=== PATIENT | female | born 2000 | race Caucasian/White ===

== ENCOUNTER 2023-01-14 12:21 | Emergency (ER) | payer BC ==
[~2023-01-14 12:21] MED LIST: Iopamidol-370 76% 500 ML MDV (1 ML CHARGE) ONE
[2023-01-14 14:52] LABS: Bacteria/HPF None Seen HPF (None Seen); Bilirubin Negative (Negative); Blood, Urine Negative (Negative); CAUTI Indications for Culture Dysuria,urgency,freq; Clarity Clear (Clear); Glucose, Urine (Dipstick) Greater than 1000 mg/dL (Negative); Ketone, Urine Negative (Negative); Leukocyte Negative Leu/uL (Negative); Nitrite Negative (Negative); Pregnancy Test - Urine (BHCG) Negative (Negative); Pregu Control Background? CLEAR/WHITE (CLR/WHITE); Pregu Control Bar Appear? YES (CONTROL BAR); Protein, Urine (Dipstick) Negative (Neg-Trace); RBC/HPF 0-3 HPF (0-3); Specific Gravity 1.026 (1.002-1.036); Specific Gravity, Urine 1.026 (1.002-1.036); Squamous Epithelial 0-3 HPF (0-3); Urobilinogen Normal mg/dL (Less than 2); WBC/HPF 0-3 HPF (0-3)
[2023-01-14 14:53] LABS: Urine Culture Reflex No No
[2023-01-14] MEDS ORDERED: Ketorolac Tromethamine 30 MG/ML VIAL ONE (15:23)
[2023-01-14 15:26] LABS: #Basophils 0.1 thou/uL (0.0-0.2); #Monocytes 1.5 thou/uL (0.11-0.59); #Neutrophils 11.4 thou/uL (1.40-6.50); %Basophils 0.4 % (0.0-1.0); %Eosinophils 0.3 % (0.0-10.0); %Lymphocytes 16.8 % (21.0-51.0); %Monocytes 9.7 % (0.0-10.0); %Neutrophils 72.1 % (42.0-75.0); Hematocrit 38.4 % (36.0-47.0); Mean Corpuscular HGB CONC 33.9 g/dL (32.0-36.0); Mean Corpuscular Hemoglobin 27.9 pg (27.0-31.0); Mean Corpuscular Volume 82.4 fl (78.0-98.0); Mean Platelet Volume 10.2 fL (7.4-10.4); Platelet Count 335 10x3/uL (130-400); RBC Distribution Width 13.2 % (11.5-14.5); Red Blood Cell (RBC) Count 4.66 mill/uL (4.20-5.40); White Blood Cell (WBC) Count 15.8 10x3/uL (4.8-10.8)
[2023-01-14 18:26] LABS: Albumin 4.1 g/dL (3.5-5.0)
[2023-01-14 18:27] LABS: Chloride 99 mmol/L (98-107); Sodium 130 mmol/L (136-145)
[2023-01-14 18:28] LABS: Calcium 9.7 mg/dL (7.8-10.44); Glucose 252 mg/dL (70-105)
[2023-01-14 18:29] LABS: Globulin 3.8 g/dL (2.4-3.5); Protein, Total 7.9 g/dL (6.0-8.3)
[2023-01-14 18:30] LABS: Anion Gap 13 mmol/L (10-20); Bilirubin, Total 0.4 mg/dL (0.2-1.2); Carbon Dioxide 23 mmol/L (22-29)
[2023-01-14 18:31] LABS: Alkaline Phosphatase 57 U/L (40-110)
[2023-01-14 18:32] LABS: Calc. Creatinine Clearance 0 mL/min (70-130); Estimated GFR 84
[2023-01-14 18:33] LABS: AST (SGOT) 29 U/L (5-34); BUN (Urea Nitrogen) 12 mg/dL (7.0-18.7)
[2023-01-14 18:34] LABS: ALT (SGPT) 39 U/L (8-55)
== END 2023-01-14 21:25 | disposition home or self-care (01) ==
LOC: ERS 12:21
DX: N83.202 Unspecified ovarian cyst, left side (principal); M54.9 Dorsalgia, unspecified; E10.9 Type 1 diabetes mellitus without complications; F17.290 Nicotine dependence, other tobacco product, uncomplicated; Z79.84 Long term (current) use of oral hypoglycemic drugs; Z79.4 Long term (current) use of insulin
CPT/HCPCS: 36415; 74177; 76856; 80053; 81001; 81025; 83605; 85025; 96374; J1885; Q9967

== ENCOUNTER 2024-02-20 16:44 | Emergency (ER) | payer BC ==
[2024-02-20 17:45] LABS: #Basophils 0.05 10x3/uL (0.0-0.2); %Basophils 0.4 % (0.0-1.0); %Eosinophils 1.5 % (0.0-10.0); %Lymphocytes 20.8 % (21.0-51.0); %Monocytes 5.2 % (0.0-10.0); %Neutrophils 71.5 % (42.0-75.0); Hematocrit 42.2 % (36.0-47.0); Hemoglobin 14.4 g/dL (12.0-16.0); Mean Corpuscular HGB CONC 34.1 g/dL (32.0-36.0); Mean Corpuscular Hemoglobin 28.9 pg (27.0-31.0); Mean Corpuscular Volume 84.6 fL (78.0-98.0); Mean Platelet Volume 9.9 fL (7.4-10.4); Platelet Count 319 10x3/uL (130-400); RBC Distribution Width 12.5 % (11.5-14.5); Red Blood Cell (RBC) Count 4.99 mill/uL (4.20-5.40)
[2024-02-20 17:55] LABS: Actual Bicarbonate (HCO3v) 23.8 mEq/L (22-28); Analyzer IN Cardio ER; Base Excess 0.2 mEq/L (-2.0 to +3.0); Calcium, Ionized (venous) 1.12 mmol/L (1.16-1.32); Chloride (VBG) 92 mmol/L (98-106); Hematocrit-VBG 45 % (36.0-47.0); Hemoglobin (Hb) 15.2 g/dL (11.7-15.5); Potassium (VBG) 4.66 mmol/L (3.70-5.30); Sodium 132 mmol/L (133-146)
[2024-02-20] MEDS ORDERED: Droperidol 5 MG/2 ML VIAL ONE (18:02)
[2024-02-20] MEDS ORDERED: Morphine 4 MG/ML VIAL ONE ×2 (18:02→22:53)
[2024-02-20] MEDS ORDERED: Proparacaine 0.5% Opth 15 ML BOT ONE (18:03)
[2024-02-20 18:08] LABS: Troponin I Less than 0.010 ng/mL (< 0.028)
[2024-02-20 18:18] LABS: ALT (SGPT) 73 U/L (8-55); AST (SGOT) 53 U/L (5-34); Albumin 4.2 g/dL (3.5-5.0); Alkaline Phosphatase 50 U/L (40-110); Anion Gap 19 mmol/L (10-20); BUN (Urea Nitrogen) 15 mg/dL (7.0-18.7); Bilirubin, Total 0.6 mg/dL (0.2-1.2); Calc. Creatinine Clearance 0 mL/min (70-130); Calcium 9.9 mg/dL (7.8-10.44); Carbon Dioxide 21 mmol/L (22-29); Chloride 93 mmol/L (98-107); Estimated GFR 74; Globulin 3.5 g/dL (2.4-3.5); Glucose 527 mg/dL (70-105); Potassium 4.3 mmol/L (3.5-5.1); Protein, Total 7.7 g/dL (6.0-8.3); Sodium 129 mmol/L (136-145)
== END 2024-02-20 23:26 | disposition short-term general hospital (02) ==
LOC: ERS 16:44
DX: E10.39 Type 1 diabetes mellitus with other diabetic ophthalmic complication (principal); H42 Glaucoma in diseases classified elsewhere; E10.65 Type 1 diabetes mellitus with hyperglycemia; H40.052 Ocular hypertension, left eye
CPT/HCPCS: 36415; 36416; 80053; 82010; 82805; 83735; 84484; 85025; 96374; 96375; J1790; J2272

== ENCOUNTER 2024-05-14 14:26 | Emergency (ER) | payer BC | END 2024-05-14 15:47 | disposition home or self-care (01) | LOC: ERS 14:26 | DX: S90.811A Abrasion, right foot, initial encounter (principal); E10.9 Type 1 diabetes mellitus without complications; X50.1XXA Overexertion from prolonged static or awkward postures, initial encounter; Y92.481 Parking lot as the place of occurrence of the external cause | CPT/HCPCS: 99283 ==

== ENCOUNTER 2025-01-01 20:03 | Emergency (ER) | payer BC ==
[2025-01-01] MEDS ORDERED: Rabies Vaccine Human 2.5 UNITS VIAL ONE (21:15)
[2025-01-01] MEDS ORDERED: Rabies Immune Globulin/PF 300 UNITS/ML VIAL ONE (21:16)
[2025-01-01] MEDS ORDERED: Boostrix 0.5 ML (Tdap) VIAL (>/=7 yrs of age) ONE (21:30)
== END 2025-01-01 22:48 | disposition home or self-care (01) ==
LOC: ERS 20:03
DX: S61.451A Open bite of right hand, initial encounter (principal); E10.9 Type 1 diabetes mellitus without complications; F17.290 Nicotine dependence, other tobacco product, uncomplicated; W55.01XA Bitten by cat, initial encounter
CPT/HCPCS: 90375; 90471; 90472; 90675; 90715; 96372

== ENCOUNTER → 2025-01-04 | Day surgery (SDC) | payer BC ==
[~2025-01-04] MED LIST changes: -Iopamidol-370 76% 500 ML MDV (1 ML CHARGE) ONE; +Rabies Vaccine Human 2.5 UNITS VIAL ONE
== END ==
LOC: ER/OP 21:14
PROVIDERS: ATTEND Emergency Medicine
DX: Z29.14 Encounter for prophylactic rabies immune globulin (principal)
CPT/HCPCS: 90675

== ENCOUNTER 2025-01-08 19:07 | Emergency (ER) | payer BC ==
[2025-01-08] MEDS ORDERED: Rabies Vaccine Human 2.5 UNITS VIAL ONE (19:15)
== END 2025-01-08 22:00 | disposition left against medical advice (07) ==
LOC: ERS 19:07
DX: Z23 Encounter for immunization (principal); E10.9 Type 1 diabetes mellitus without complications; E78.5 Hyperlipidemia, unspecified; F17.290 Nicotine dependence, other tobacco product, uncomplicated
CPT/HCPCS: 90471; 90675

== ENCOUNTER 2025-01-10 17:33 | Emergency (ER) | payer BC ==
[2025-01-10] MEDS ORDERED: Dexamethasone 10 MG/ML VIAL ONE (18:43)
[2025-01-10] MEDS ORDERED: diphenhydrAMINE 50 MG/ML VIAL ONE (18:43)
[2025-01-10 18:44] LABS: #Basophils 0.04 10x3/uL (0.0-0.2); #Eosinophils 0.24 10x3/uL (0.0-0.7); #Monocytes 0.84 10x3/uL (0.11-0.59); #Neutrophils 6.83 10x3/uL (1.40-6.50); %Basophils 0.4 % (0.0-1.0); %Eosinophils 2.4 % (0.0-10.0); %Lymphocytes 21.2 % (21.0-51.0); %Monocytes 8.2 % (0.0-10.0); %Neutrophils 67.0 % (42.0-75.0); Hematocrit 42.0 % (36.0-47.0); Hemoglobin 13.3 g/dL (12.0-16.0); Mean Corpuscular Hemoglobin 27.6 pg (27.0-31.0); Mean Corpuscular Volume 87.1 fL (78.0-98.0); Platelet Count 301 10x3/uL (130-400); Red Blood Cell (RBC) Count 4.82 mill/uL (4.20-5.40); White Blood Cell (WBC) Count 10.19 10x3/uL (4.8-10.8)
[2025-01-10 19:18] LABS: ALT (SGPT) 108 U/L (Less than 34); AST (SGOT) 72 U/L (11-34); Albumin 3.5 g/dL (3.1-4.5); Alkaline Phosphatase 62 U/L (40-110); Anion Gap 18 mmol/L (10-20); BUN (Urea Nitrogen) 11 mg/dL (7.0-18.7); Bilirubin, Total 0.3 mg/dL (0.3-1.2); CK (CPK) 62 U/L (29-168); Calc. Creatinine Clearance 0 mL/min (70-130); Calcium 9.4 mg/dL (7.8-10.44); Carbon Dioxide 19 mmol/L (22-29); Chloride 97 mmol/L (98-107); Globulin 3.2 g/dL (2.4-3.5); Glucose 530 mg/dL (70-105); Potassium 4.0 mmol/L (3.5-5.1); Sodium 130 mmol/L (136-145)
[2025-01-10 19:29] LABS: Pregnancy Test - Urine (BHCG) Negative (Negative); Pregu Control Background? CLEAR/WHITE (CLR/WHITE); Pregu Control Bar Appear? YES (CONTROL BAR)
[2025-01-10 19:34] LABS: Bacteria/HPF None Seen HPF (None Seen); CAUTI Indications for Culture Dysuria,urgency,freq; Glucose, Urine (Dipstick) Greater than 1000 mg/dL (Negative); Leukocyte Negative Leu/uL (Negative); Protein, Urine (Dipstick) Negative (Neg-Trace); Specific Gravity, Urine 1.019 (1.002-1.036); WBC/HPF 0-3 HPF (0-3)
[2025-01-10 19:36] LABS: Urine Culture Reflex No No
== END 2025-01-10 21:13 | disposition home or self-care (01) ==
LOC: ERS 17:33
DX: E10.65 Type 1 diabetes mellitus with hyperglycemia (principal); R42 Dizziness and giddiness; F17.290 Nicotine dependence, other tobacco product, uncomplicated
CPT/HCPCS: 36415; 36416; 71045; 80053; 81001; 81025; 82010; 82140; 82550; 84443; 85025; 93005; 96374; 96375; J1100; J1200; J1815

== ENCOUNTER 2025-01-25 15:20 | Emergency (ER) | payer BC ==
[2025-01-25] MEDS ORDERED: Iopamidol-370 76% 500 ML MDV (1 ML CHARGE) ONE (15:55)
[2025-01-25 16:17] LABS: CAUTI Indications for Culture Dysuria,urgency,freq; Glucose, Urine (Dipstick) Greater than 1000 mg/dL (Negative); Leukocyte 75 Leu/uL (Negative); Protein, Urine (Dipstick) 20 mg/dL (Neg-Trace); RBC/HPF 0-3 HPF (0-3); Specific Gravity, Urine 1.029 (1.002-1.036)
[2025-01-25 16:21] LABS: #Basophils 0.07 10x3/uL (0.0-0.2); #Eosinophils 0.23 10x3/uL (0.0-0.7); #Monocytes 0.81 10x3/uL (0.11-0.59); #Neutrophils 8.77 10x3/uL (1.40-6.50); %Basophils 0.6 % (0.0-1.0); %Eosinophils 1.8 % (0.0-10.0); %Lymphocytes 20.6 % (21.0-51.0); %Monocytes 6.4 % (0.0-10.0); %Neutrophils 69.9 % (42.0-75.0); Hematocrit 38.3 % (36.0-47.0); Hemoglobin 12.5 g/dL (12.0-16.0); Mean Corpuscular Hemoglobin 27.9 pg (27.0-31.0); Mean Corpuscular Volume 85.5 fL (78.0-98.0); Platelet Count 317 10x3/uL (130-400); Red Blood Cell (RBC) Count 4.48 mill/uL (4.20-5.40); White Blood Cell (WBC) Count 12.56 10x3/uL (4.8-10.8)
[2025-01-25 16:26] LABS: Bacteria/HPF 3+ HPF (None Seen); WBC/HPF 21-50 HPF (0-3)
[2025-01-25 16:28] LABS: Urine Culture Reflex Yes Yes
[2025-01-25 16:32] LABS: BHCG - Serum Negative (NEGATIVE); Pregs Control Background? CLEAR/WHITE (CLR/WHITE); Pregs Control Bar Appear? YES (CONTROL BAR)
[2025-01-25 16:41] LABS: ALT (SGPT) 107 U/L (Less than 34); AST (SGOT) 87 U/L (11-34); Albumin 3.5 g/dL (3.1-4.5); Alkaline Phosphatase 62 U/L (40-110); Anion Gap 17 mmol/L (10-20); BUN (Urea Nitrogen) 16 mg/dL (7.0-18.7); Bilirubin, Total 0.4 mg/dL (0.3-1.2); Calc. Creatinine Clearance 0 mL/min (70-130); Calcium 9.5 mg/dL (7.8-10.44); Carbon Dioxide 21 mmol/L (22-29); Chloride 97 mmol/L (98-107); Globulin 3.3 g/dL (2.4-3.5); Glucose 275 mg/dL (70-105); Potassium 3.8 mmol/L (3.5-5.1); Sodium 131 mmol/L (136-145)
== END 2025-01-25 19:16 | disposition home or self-care (01) ==
LOC: ERS 15:20
DX: N39.0 Urinary tract infection, site not specified (principal); N83.201 Unspecified ovarian cyst, right side; R16.0 Hepatomegaly, not elsewhere classified; E78.5 Hyperlipidemia, unspecified; E10.319 Type 1 diabetes mellitus with unspecified diabetic retinopathy without macular edema; F17.210 Nicotine dependence, cigarettes, uncomplicated; Z79.84 Long term (current) use of oral hypoglycemic drugs
CPT/HCPCS: 74177; 76856; 80053; 81001; 84703; 85025; 87077; 87086; 87186; Q9967

== ENCOUNTER 2025-02-03 04:56 | Emergency (ER) | payer BC ==
[2025-02-03] MEDS ORDERED: Ondansetron PF 4 MG/2 ML Vial ONE (05:30)
[2025-02-03 07:44] LABS: #Basophils 0.05 10x3/uL (0.0-0.2); #Eosinophils 0.24 10x3/uL (0.0-0.7); #Monocytes 0.96 10x3/uL (0.11-0.59); #Neutrophils 8.81 10x3/uL (1.40-6.50); %Basophils 0.4 % (0.0-1.0); %Eosinophils 1.7 % (0.0-10.0); %Lymphocytes 27.1 % (21.0-51.0); %Monocytes 6.9 % (0.0-10.0); %Neutrophils 63.1 % (42.0-75.0); Hematocrit 39.7 % (36.0-47.0); Hemoglobin 13.2 g/dL (12.0-16.0); Mean Corpuscular Hemoglobin 27.7 pg (27.0-31.0); Mean Corpuscular Volume 83.4 fL (78.0-98.0); Platelet Count 348 10x3/uL (130-400); Red Blood Cell (RBC) Count 4.76 mill/uL (4.20-5.40); White Blood Cell (WBC) Count 13.95 10x3/uL (4.8-10.8)
[2025-02-03 07:53] LABS: Pregnancy Test - Urine (BHCG) Negative (Negative); Pregu Control Background? CLEAR/WHITE (CLR/WHITE); Pregu Control Bar Appear? YES (CONTROL BAR)
[2025-02-03 07:55] LABS: Bacteria/HPF None Seen HPF (None Seen); CAUTI Indications for Culture Dysuria,urgency,freq; Glucose, Urine (Dipstick) Greater than 1000 mg/dL (Negative); Leukocyte Negative Leu/uL (Negative); Protein, Urine (Dipstick) 50 mg/dL (Neg-Trace); RBC/HPF 0-3 HPF (0-3); Specific Gravity, Urine 1.020 (1.002-1.036); WBC/HPF 0-3 HPF (0-3); Yeast-Budding Rare HPF (None Seen)
[2025-02-03 07:58] LABS: Urine Culture Reflex No No
[2025-02-03 08:04] LABS: ALT (SGPT) 68 U/L (Less than 34); AST (SGOT) 50 U/L (11-34); Albumin 3.7 g/dL (3.1-4.5); Alkaline Phosphatase 59 U/L (40-110); Anion Gap 15 mmol/L (10-20); BUN (Urea Nitrogen) 19 mg/dL (7.0-18.7); Bilirubin, Total 0.3 mg/dL (0.3-1.2); Calc. Creatinine Clearance 0 mL/min (70-130); Calcium 9.7 mg/dL (7.8-10.44); Carbon Dioxide 21 mmol/L (22-29); Chloride 100 mmol/L (98-107); Globulin 3.5 g/dL (2.4-3.5); Glucose 389 mg/dL (70-105); Magnesium 1.9 mg/dL (1.6-2.6); Potassium 4.4 mmol/L (3.5-5.1); Sodium 132 mmol/L (136-145)
== END 2025-02-03 09:08 | disposition home or self-care (01) ==
LOC: ERS 04:56
DX: M79.605 Pain in left leg (principal); E10.65 Type 1 diabetes mellitus with hyperglycemia; H53.142 Visual discomfort, left eye; E78.5 Hyperlipidemia, unspecified; F17.210 Nicotine dependence, cigarettes, uncomplicated; Z79.899 Other long term (current) drug therapy
CPT/HCPCS: 36416; 80053; 81001; 81025; 82010; 83735; 85025; 87428; 96361; 96374; 96375

== ENCOUNTER 2025-02-07 04:30 | Emergency (ER) | payer BC ==
[2025-02-07] MEDS ORDERED: Famotidine/PF 20 mg/2ml Vial ONE (06:08)
[2025-02-07] MEDS ORDERED: Metoclopramide HCl 10 MG (2 mL) VIAL ONE (06:08)
[2025-02-07] MEDS ORDERED: diphenhydrAMINE 50 MG/ML VIAL ONE (06:08)
[2025-02-07 06:46] LABS: #Basophils 0.06 10x3/uL (0.0-0.2); #Eosinophils 0.24 10x3/uL (0.0-0.7); #Monocytes 0.92 10x3/uL (0.11-0.59); #Neutrophils 8.66 10x3/uL (1.40-6.50); %Basophils 0.4 % (0.0-1.0); %Eosinophils 1.8 % (0.0-10.0); %Lymphocytes 26.6 % (21.0-51.0); %Monocytes 6.8 % (0.0-10.0); %Neutrophils 63.7 % (42.0-75.0); Hematocrit 42.8 % (36.0-47.0); Hemoglobin 13.6 g/dL (12.0-16.0); Mean Corpuscular Hemoglobin 27.0 pg (27.0-31.0); Mean Corpuscular Volume 85.1 fL (78.0-98.0); Platelet Count 346 10x3/uL (130-400); Red Blood Cell (RBC) Count 5.03 mill/uL (4.20-5.40); White Blood Cell (WBC) Count 13.60 10x3/uL (4.8-10.8)
[2025-02-07 07:02] LABS: ALT (SGPT) 67 U/L (Less than 34); AST (SGOT) 37 U/L (11-34); Albumin 4.1 g/dL (3.1-4.5); Alkaline Phosphatase 55 U/L (40-110); Anion Gap 17 mmol/L (10-20); BUN (Urea Nitrogen) 15 mg/dL (7.0-18.7); Bilirubin, Total 0.3 mg/dL (0.3-1.2); Calc. Creatinine Clearance 0 mL/min (70-130); Calcium 10.3 mg/dL (7.8-10.44); Carbon Dioxide 21 mmol/L (22-29); Chloride 103 mmol/L (98-107); Globulin 3.4 g/dL (2.4-3.5); Glucose 129 mg/dL (70-105); Lipase 25 U/L (8-78); Magnesium 1.8 mg/dL (1.6-2.6); Potassium 3.7 mmol/L (3.5-5.1); Sodium 137 mmol/L (136-145)
[2025-02-07 08:04] LABS: Pregnancy Test - Urine (BHCG) Negative (Negative); Pregu Control Background? CLEAR/WHITE (CLR/WHITE); Pregu Control Bar Appear? YES (CONTROL BAR)
[2025-02-07 08:05] LABS: Bacteria/HPF None Seen HPF (None Seen); CAUTI Indications for Culture Pelvic or flank pain; Glucose, Urine (Dipstick) 50 mg/dL (Negative); Leukocyte 25 Leu/uL (Negative); Protein, Urine (Dipstick) 200 mg/dL (Neg-Trace); RBC/HPF 0-3 HPF (0-3); Specific Gravity, Urine 1.024 (1.002-1.036)
[2025-02-07 08:08] LABS: Urine Culture Reflex No No
[2025-02-07 08:16] LABS: Cocaine Metabolite Screen Negative (Negative); THC/Cannabinoid Screen PRELIM POSITIVE (Negative); Tricyclic Screen Negative (Negative)
== END 2025-02-07 08:47 | disposition home or self-care (01) ==
LOC: ERS 04:30
DX: R11.2 Nausea with vomiting, unspecified (principal); R10.32 Left lower quadrant pain; E10.319 Type 1 diabetes mellitus with unspecified diabetic retinopathy without macular edema; F17.210 Nicotine dependence, cigarettes, uncomplicated; F17.290 Nicotine dependence, other tobacco product, uncomplicated
CPT/HCPCS: 36415; 76856; 80053; 80306; 81001; 81025; 83690; 83735; 85025; 96365; 96366; 96375; J1200; J2765

== ENCOUNTER 2025-04-28 17:22 | Emergency (ER) | payer BC ==
[2025-04-28 18:39] LABS: #Basophils 0.07 10x3/uL (0.0-0.2); #Eosinophils 0.27 10x3/uL (0.0-0.7); #Monocytes 0.92 10x3/uL (0.11-0.59); #Neutrophils 9.28 10x3/uL (1.40-6.50); %Basophils 0.5 % (0.0-1.0); %Eosinophils 2.0 % (0.0-10.0); %Lymphocytes 21.9 % (21.0-51.0); %Monocytes 6.7 % (0.0-10.0); %Neutrophils 67.9 % (42.0-75.0); Hematocrit 40.2 % (36.0-47.0); Hemoglobin 13.2 g/dL (12.0-16.0); Mean Corpuscular Hemoglobin 27.6 pg (27.0-31.0); Mean Corpuscular Volume 83.9 fL (78.0-98.0); Platelet Count 335 10x3/uL (130-400); Red Blood Cell (RBC) Count 4.79 mill/uL (4.20-5.40); White Blood Cell (WBC) Count 13.67 10x3/uL (4.8-10.8)
[2025-04-28 18:53] LABS: ALT (SGPT) 117 U/L (Less than 34); AST (SGOT) 90 U/L (11-34); Albumin 4.0 g/dL (3.1-4.5); Alkaline Phosphatase 68 U/L (40-110); Anion Gap 19 mmol/L (10-20); BUN (Urea Nitrogen) 12 mg/dL (7.0-18.7); Bilirubin, Total 0.5 mg/dL (0.3-1.2); Calc. Creatinine Clearance 0 mL/min (70-130); Calcium 9.9 mg/dL (7.8-10.44); Carbon Dioxide 20 mmol/L (22-29); Chloride 99 mmol/L (98-107); Globulin 3.5 g/dL (2.4-3.5); Glucose 357 mg/dL (70-105); Potassium 4.3 mmol/L (3.5-5.1); Sodium 134 mmol/L (136-145)
[2025-04-28 19:09] LABS: BHCG - Serum Negative (NEGATIVE); Pregs Control Background? CLEAR/WHITE (CLR/WHITE); Pregs Control Bar Appear? YES (CONTROL BAR)
== END 2025-04-28 19:38 | disposition home or self-care (01) ==
LOC: ERS 17:22
DX: R04.0 Epistaxis (principal); E10.319 Type 1 diabetes mellitus with unspecified diabetic retinopathy without macular edema; F17.290 Nicotine dependence, other tobacco product, uncomplicated
CPT/HCPCS: 80053; 84703; 85025; 87428; 99283